=== PATIENT | male | born 1945 | race Caucasian/White ===

== ENCOUNTER 2016-10-16 08:12 | Inpatient (IN) | payer BC, OTHER ==
[2016-09-23 13:12] VITALS: BMI 32.0
--- NOTE | 2016-09-23 13:51 | PAT Medication Instructions ---
Service Date Sep 23, 2016. Current Home Medication List Allopurinol (Zyloprim *), 100 MG PO QAM Aspirin (Aspirin Chewable), 81 MG PO QAM Cholecalciferol (Vitamin D3), 1 TAB PO QAM Coenzyme Q10 (Ubidecarenone) (Co Q 10), 1 CAP PO QAM Fish Oil ([place]-3), 1 CAP PO QAM Metoprolol Tartrate (Lopressor) (Lopressor), 25 MG PO BID Nitroglycerin (Nitroglycerin Lingual), 1 DOSE SL UD Omeprazole (Prilosec), 40 MG PO QAM Sildenafil Citrate (Viagra), 50 MG PO PRN Simvastatin (Zocor), 40 MG PO QPM Medication Instructions For Your Scheduled Surgery - Hold the following medications 2 weeks prior to surgery: Coenzyme Q10 (Ubidecarenone) (Co Q 10), 1 CAP PO QAM Fish Oil ([place]-3), 1 CAP PO QAM - Hold the following medications the morning of surgery: Cholecalciferol (Vitamin D3), 1 TAB PO QAM Sildenafil Citrate (Viagra), 50 MG PO PRN - Take the following medications the morning of surgery with a sip of water: Omeprazole (Prilosec), 40 MG PO QAM Nitroglycerin (Nitroglycerin Lingual), 1 DOSE SL UD (if needed) Metoprolol Tartrate (Lopressor) (Lopressor), 25 MG PO BID Allopurinol (Zyloprim *), 100 MG PO QAM Aspirin (Aspirin Chewable), 81 MG PO QAM (continue per surgeon for instructions) - Take the following medications as scheduled the night before surgery: Simvastatin (Zocor), 40 MG PO QPM Sildenafil Citrate (Viagra), 50 MG PO PRN (if needed) Nitroglycerin (Nitroglycerin Lingual), 1 DOSE SL UD (if needed) Metoprolol Tartrate (Lopressor) (Lopressor), 25 MG PO BID If you have any questions please call us at [phone] (Karla You PA-C) or [phone] or [phone]
--- NOTE | 2016-09-23 14:35 | DIAGNOSTIC IMAGING REPORT ---
TWO VIEW CHEST CLINICAL HISTORY: Preoperative examination. FINDINGS: PA and lateral chest radiographs are compared to study dated 11/18/2011. The cardiomediastinal silhouette is unremarkable. There is atherosclerotic calcification of the thoracic aorta. The lungs and pleural spaces are clear. There is no pneumothorax. The skeletal structures are osteopenic. The bony thorax appears intact. Degenerative change is noted throughout the thoracic spine. IMPRESSION: No active disease in the chest. Electronically signed by: Stas Harrington M.D. 09/23/2016 2:34 PM
[2016-09-23 14:42] LABS: BASO % 0.8 %; BASO ABS # 0.07 K/uL (0-0.2); COMPLETE YES; EOS % 2.2 %; HEMATOCRIT 43.2 % (42-52); IG% 0.8 %; LYMPH % 23.9 %; LYMPH ABS # 2.15 K/uL (1.2-3.4); MEAN CELL VOLUME 90.6 fL (80-100); MEAN CORPUSCULAR HEMOGLOBIN 30.8 pg (25-34); MEAN PLATELET VOLUME 11.2 fL (7.4-10.4); NEUT % 61.3 %; PLATELET COUNT 240 K/uL (130-400); RED BLOOD COUNT 4.77 M/uL (4.7-6.1); WHITE BLOOD COUNT 8.99 K/uL (4.8-10.8)
[2016-09-23 14:50] LABS: ESTIMATED AVERAGE GLUCOSE 123 mg/dl; HA1C FLAG Normal (Normal)
[2016-09-23 14:55] LABS: PROTHROMBIN TIME (PATIENT) 10.7 SECONDS (9.0-12.0)
[2016-09-23 15:07] LABS: BUN/CREATININE RATIO 14.4 (10-20); CALCIUM 8.9 mg/dl (8.5-10.1); CREATININE 1.1 mg/dl (0.60-1.40); POTASSIUM 3.7 mmol/L (3.5-5.1)
--- NOTE | 2016-10-15 13:23 | HISTORY & PHYSICAL EXAMINATION ---
DATE OF ADMISSION: 10/16/2016 CHIEF COMPLAINT: Right knee pain. HISTORY OF PRESENT ILLNESS: The patient is a 71-year-old gentleman with known osteoarthritis about his right knee. He has had multiple previous corticosteroid injections. He continues to have pain and disability with his activities of daily living. He has pain with prolonged weightbearing and standing activities. He has difficulty with any kneeling, bending, or squatting activities. He now desires to proceed with right total knee arthroplasty. PAST MEDICAL HISTORY: Coronary artery disease, left ventricular hypertrophy, hypertension, hyperlipidemia, peripheral vascular disease, first degree AV block, and gout. PAST SURGICAL HISTORY: Hand surgery, knee arthroscopy, prostate surgery, and tonsillectomy. MEDICATIONS: Allopurinol 100 mg daily, aspirin 81 mg daily, CoQ10 100 mg twice daily, fish oil 1000 mg daily, metoprolol tartrate 25 mg daily, nitroglycerin 0.4 mg sublingual p.r.n. chest pain, omeprazole 40 mg daily, simvastatin 40 mg in the evening, vitamin D 1000 units every other day. ALLERGIES: AMOXICILLIN. SOCIAL HISTORY AND REVIEW OF SYSTEMS: Noncontributory. PHYSICAL EXAMINATION: GENERAL: Well-nourished, well-developed elderly male who appears his stated age. HEENT: Normocephalic, atraumatic, extraocular movements intact, oropharynx pink and moist. NECK: Supple without adenopathy. LUNGS: Clear to auscultation bilaterally. HEART: Regular rate and rhythm. ABDOMEN: Soft, nontender, nondistended. EXTREMITIES: The upper extremity within normal limits. The right knee has a varus alignment. He complains primarily of medial compartment pain. His range of motion from 0-120 degrees. X-RAYS: X-rays were reviewed. He has a varus-aligned knee. He has bone on bone arthritis of the medial compartment with complete loss of the joint space. There is moderate osteophyte formation about the patellofemoral joint. ASSESSMENT: Right knee degenerative joint disease. PLAN: Risks versus benefits were discussed. Consent was obtained. The patient's primary care physician is Dr. Freed. Will proceed with right total knee arthroplasty upon preoperative workup and medical clearance.
[2016-10-16] VITALS (9 sets, daily range): BP systolic 121–163; BP diastolic 67–93; PULSE 79–102; TEMP 36.3–36.9; O2SAT 93–99; Ht 188 cm; Wt 114.7 kg
[~2016-10-16] VITALS: Ht 188 cm; Wt 114.7 kg
[~2016-10-16 08:12] MED LIST: ACETAMINOPHEN 500 MG TAB PO SCH; ALL100 PO; ASPCH81X PO; BUPIVACAINE 0.5 % 5 MG/1 ML PF 10ML VIAL ONE; CHOL1000 PO; CLINDAMYCIN 600 MG/54 ML D5W 54 ML IV SCH; COEN1CAP17 PO; CeleBREX 200 MG CAP PO SCH; DEXAMETHASONE 4 MG TAB PO SCH; FAMOTIDINE 20 MG TAB PO SCH; GABAPENTIN 300 MG CAP PO SCH; LACTATED RINGER'S 1000ML IV SCH; LACTATED RINGER'S 500 ML IV SCH; METO25TA56 PO; METOCLOPRAMIDE HCL 10 MG TAB PO SCH; METOPROLOL TARTRATE 25 MG TAB PO SCH; NITR0.4S76 SL; OMEG10007 PO; OMEP40CA PO; ROPIVACAINE 5MG/ML 30 ML 150 MG, BUPIVACAINE/EPINEPHR 0.5% MPF 30 ML, KETOROLAC TROMETH... INFIL SCH; SIMV80TA2 PO; VGR50 PO
[2016-10-16] MEDS ORDERED: FENTANYL CITRATE INJ 50 MCG/1 ML 2 ML VIAL ONE ×3 (08:46→13:21)
[2016-10-16] MEDS ORDERED: MIDAZOLAM HCL 1 MG/ML 2ML VIAL ONE (08:46)
[2016-10-16] MEDS ORDERED: NURSING VERBAL MED ORDER ONE (09:00)
--- NOTE | 2016-10-16 09:05 | History & Physical Bridge Note ---
H&P Re-Evaluation Bridge Note: I have examined the patient, reviewed the History & Physical and in the interval since the performance of the History & Physical I have noted the following changes of clinical significance: No changes noted
[2016-10-16] MEDS ORDERED: BUPIVACAINE 0.25% 30 ML VIAL ONE (09:07)
[2016-10-16] MEDS: TRANEXAMIC ACID INJ 1,000 MG in SODIUM CHLORIDE 0.9% 100ML 100 ML IV SCH ×2 (09:12→16:03)
[2016-10-16] MEDS ORDERED: PHENYLEPHRINE HCL INJ 10 MG/ML VIAL ONE (09:36)
[2016-10-16] MEDS ORDERED: EpHEDrine SULFATE INJ 50 MG/ML AMP IV PRN (09:45)
[2016-10-16] MEDS ORDERED: FENTANYL CITRATE INJ 50 MCG/1 ML 2 ML VIAL IV PRN (09:45)
[2016-10-16] MEDS ORDERED: ONDANSETRON INJ 2 MG/ML 2 ML VIAL IV PRN ×2 (09:45→11:45)
[2016-10-16] MEDS ORDERED: ORTHO JOINT ANESTHETIC ONE (09:45)
[2016-10-16] MEDS ORDERED: HYDROmorphone INJ 1 MG/ML SYR IV PRN (09:45)
[2016-10-16] MEDS ORDERED: ATROPINE SULFATE 0.1 MG/ML 5ML SYR IV PRN (09:45)
[2016-10-16] MEDS ORDERED: PROPOFOL IV EMULSION 10 MG/ML 20 ML VIAL IV ONE (10:18)
[2016-10-16] MEDS ORDERED: LIDOCAINE HCL 2% 2 ML VIAL (20MG/ML) ONE (10:18)
[2016-10-16] MEDS ORDERED: DEXAMETHASONE SOD INJ 4 MG/ML VIAL ONE (10:18)
[2016-10-16] MEDS ORDERED: ONDANSETRON INJ 2 MG/ML 2 ML VIAL ONE (10:18)
[2016-10-16] MEDS ORDERED: HYDROmorphone INJ 2 MG/ML SYR/VIAL ONE (10:34)
[2016-10-16] MEDS ORDERED: BACITRACIN 50000 UNIT VIAL IR ONE (11:17)
[2016-10-16] MEDS ORDERED: POVIDONE-IODINE OP SOLN 30 ML BTL TOP ONE (11:17)
--- NOTE | 2016-10-16 11:26 | OPERATIVE REPORT ---
DATE OF OPERATION: 10/16/2016 PREOPERATIVE DIAGNOSIS: Osteoarthritis right knee. POSTOPERATIVE DIAGNOSIS: Osteoarthritis right knee. PROCEDURE: Right total knee arthroplasty. SURGEON: Dr. Pringle. AIRLINE MANAGER: Andrew Dueñas PA-C. ANESTHESIA: Spinal. COMPLICATIONS: None. OPERATION AND FINDINGS: Following induction of spinal anesthesia, the patient's right leg was prepped and draped in the usual sterile manner. Limb was exsanguinated with an Esmarch bandage and tourniquet was inflated to 350 mmHg. A longitudinal incision was made anteriorly. Subcutaneous tissue was sharply dissected. Electrocautery was used for hemostasis. Prepatellar bursa was incised and median parapatellar incision was performed. Patella was everted and the knee was flexed. Fat pad was removed to aid in visualization and the anterior and posterior cruciate ligaments were removed. The medial face of the tibia was cleared of soft tissue first with a Bovie and a Borrego elevator. This tissue was retracted posteriorly using a blunt Hohmann. A [place] retractor was used to expose the synovium above on the anterior aspect of the femur and this was removed down to bone. The PSI guide was placed on the distal femur and two pins were placed anteriorly and kept in position and two additional pins were placed distally and removed. The distal femoral cutting block was placed in position and the distal femoral cut was used in the +0 setting. Next, the cutting block was removed and the size 5 block was placed in the distal end of the femur. Care was taken to ensure appropriate external rotation and feeler gauge was used to ensure no notching would occur. The femoral block was centered on the distal femur and in the medial and lateral direction and was fixed using two bone screws. The gold pins were then removed. The oscillating saw was used to create the bone cuts and the distal femoral cutting block was removed and the reciprocating saw was used to further trim the femoral cuts as well as a deep in the area for the trochlear groove. Next, posterior condyle remnants were removed. Following this, a meniscal clamp and knife were utilized to remove the anterior portion of both medial and lateral meniscus. The proximal tibia PSI guide was placed into position and the proximal tibial cutting guide was screwed into position. The extra medullary alignment guide was utilized to ensure appropriate alignment. The proximal tibia was cut and the proximal tibial cutting block was removed and this bone fragment was removed. The appropriate guide was used to perform the notch cut on the distal femur and a lamina underliner and a cochlear knife were utilized to finish both medial and lateral meniscectomies to remove any remnants of the posterior or anterior cruciate ligaments. Following this, the distal femoral component was impacted into position and blunt Chris was used to sublux the tibia anteriorly. The proximal tibia was sized and a size 5 tibial tray was chosen as the size to be used. This was put into position and appropriate external rotation and a double check with extramedullary alignment guide was performed. The canal for the tibial stem was prepared first with a 17 mm drill and then the punch and a mallet and the trial tibial poly was placed. A size 39 was chosen the size to be used. It was brought to extension and the patella was prepared with the patellar reamer. A size 9 component was chosen the size to be used. The trial component was placed and knee was taken through a full range of motion and there was found to be no lateral subluxation of the tibia. No lateral release was required. The trials were all removed. The final components were obtained and assembled. Cement was mixed. The knee was thoroughly irrigated and the ortho mix was injected about the knee joint. The final components were cemented into position. After thoroughly suctioning and drying the bone ends, all excess cement was removed. The knee was held in extension while the cement hardened. The wound was irrigated and closed over a Hemovac drain. #1 Vicryl was used to close the extensor mechanism. Subcutaneous tissues closed using 0 Dexon. Skin was closed with kraig. Sterile dressing of Adaptic, 4 x 4's, sterile Webril, and Julio C was applied. The patient tolerated the procedure well. Recovery room stable. Due to the complex nature of the procedure, the entire surgery was performed with the operational assistance of Andrew Dueñas PA-C. The critical care physician assistant, under direct supervision, was involved in the actual performance of all aspects of the surgical procedure including hemostasis, tissue retraction and incision, instrument management, patient positioning, and wound closure. I attest to the content of the Intraoperative Record and any orders documented therein. Any exceptio ns are noted below.
[2016-10-16] MEDS ORDERED: ZOLPIDEM TARTRATE 5 MG TAB PO PRN (11:45)
[2016-10-16] MEDS ORDERED: BISACODYL 10 MG SUPP PR PRN (11:45)
[2016-10-16] MEDS ORDERED: MoRPHine SULFATE 2 MG/ML CARP IV PRN (11:45)
[2016-10-16] MEDS ORDERED: ALUMINUM/MAGNESIUM/SIMETH (MAALOX MAX) 30 ML UDC PO PRN (11:45)
[2016-10-16] MEDS ORDERED: NITROGLYCERIN SL SPR 4.9 GM BTL SL PRN (11:45)
[2016-10-16] MEDS ORDERED: DiphenhydrAMINE HCL 50 MG/ML VIAL IV PRN (11:45)
[2016-10-16] MEDS ORDERED: TAMSULOSIN HCL 0.4 MG CAP PO PRN (11:45)
[2016-10-16] MEDS ORDERED: MAGNESIUM HYDROXIDE SUSP 30 ML UDC PO PRN (11:45)
--- NOTE | 2016-10-16 12:19 | DIAGNOSTIC IMAGING REPORT ---
RIGHT KNEE 1 OR 2 VIEWS ROUTINE CLINICAL HISTORY: Osteoarthritis. Postoperative study. COMPARISON: None. DISCUSSION: There are postsurgical changes of a total right knee arthroplasty and patellar resurfacing. The femoral and tibial components appear well seated. Overlying skin kraig and surgical drains are evident. There are no acute fractures. There is a soft tissues consistent with history of recent surgery. IMPRESSION: Postsurgical changes of a total right knee arthroplasty. Electronically signed by: Odilon Mercer M.D. 10/16/2016 12:17 PM Dictated Date/Time: 10/16/2016 12:16 PM
--- NOTE | 2016-10-16 12:45 | Anesthesiology Progress Note ---
Anesthesia Post Op Note Date & Time Oct 16, 2016 at 12:45 Vital Signs Pain Intensity: 0 Vital Signs Past 12 Hours Date Time Temp Pulse Resp B/P Pulse Ox O2 Delivery O2 Flow Rate FiO2 10/16/16 12:35 79 16 136/71 97 Nasal Cannula 2 10/16/16 12:25 36.6 76 16 131/76 100 Nasal Cannula 2 10/16/16 12:15 77 14 128/75 100 Nasal Cannula 2 10/16/16 12:05 75 12 129/80 100 Mask 10 10/16/16 11:55 76 12 128/78 99 Mask 10 10/16/16 11:46 37.0 70 12 131/78 99 Mask 10 10/16/16 08:54 36.9 95 18 163/93 94 Room Air Notes Mental Status: alert / awake / arousable, participated in evaluation Pt Amnestic to Procedure: Yes Nausea / Vomiting: adequately controlled Pain: adequately controlled Airway Patency, RR, SpO2: stable & adequate BP & HR: stable & adequate Hydration State: stable & adequate Anesthetic Complications: no major complications apparent
[2016-10-16] MEDS ORDERED: MoRPHine SULFATE 4 MG/ML 1 ML CARP\\VIAL IV PRN (13:45)
[2016-10-16] MEDS ORDERED: MoRPHine SULFATE 10 MG/ML CARP/VIAL IV PRN (13:45)
[2016-10-16] MEDS: D5W AND 1/2NSS + 20MEQ KCL 1,000 ML IV SCH (16:04)
[2016-10-16] MEDS: KETOROLAC TROMETHAMINE 15 MG/ML VIAL IV. SCH ×2 (16:12→21:37)
[2016-10-16] MEDS: FERROUS GLUCONATE 324 MG TAB PO SCH (18:07)
[2016-10-16] MEDS: CLINDAMYCIN IV 600 MG in DEXTROSE 5% ADD-VANTAGE 50ML 50 ML IV SCH (18:08)
[2016-10-16] MEDS: SENNA 8.6 MG TAB PO SCH (20:50)
[2016-10-16] MEDS: OXYCODONE HCL 10 MG TABCR (OXYCONTIN) PO SCH (20:50)
[2016-10-16] MEDS: SIMVASTATIN 40 MG TAB PO SCH (20:50)
[2016-10-16] MEDS: DOCUSATE SODIUM 100 MG CAP PO SCH (20:50)
[2016-10-16] MEDS: ASPIRIN 81 MG ECTAB PO SCH (20:50)
[2016-10-16] MEDS: METOPROLOL TARTRATE 25 MG TAB PO SCH (20:50)
[2016-10-16] MEDS: ACETAMINOPHEN 500 MG TAB PO SCH (21:36)
[2016-10-17] VITALS (7 sets, daily range): BP systolic 102–153; BP diastolic 58–75; PULSE 52–77; TEMP 36.3–36.5; O2SAT 93–96
[2016-10-17] MEDS: D5W AND 1/2NSS + 20MEQ KCL 1,000 ML IV SCH (01:45)
[2016-10-17] MEDS: CLINDAMYCIN IV 600 MG in DEXTROSE 5% ADD-VANTAGE 50ML 50 ML IV SCH (01:45)
[2016-10-17] MEDS: KETOROLAC TROMETHAMINE 15 MG/ML VIAL IV. SCH ×2 (04:03→10:01)
[2016-10-17] MEDS: ACETAMINOPHEN 500 MG TAB PO SCH ×3 (05:53→21:45)
[2016-10-17 06:17] LABS: HEMATOCRIT 33.5 % (42-52); MEAN CELL VOLUME 90.8 fL (80-100); MEAN CORPUSCULAR HEMOGLOBIN 30.6 pg (25-34); MEAN CORPUSCULAR HGB CONC 33.7 g/dl (32-36); PLATELET COUNT 256 K/uL (130-400); RED BLOOD COUNT 3.69 M/uL (4.7-6.1); WHITE BLOOD COUNT 18.06 K/uL (4.8-10.8)
[2016-10-17 06:33] LABS: BUN/CREATININE RATIO 13.4 (10-20); CALCIUM 8.5 mg/dl (8.5-10.1); CREATININE 1.1 mg/dl (0.60-1.40); POTASSIUM 4.4 mmol/L (3.5-5.1)
--- NOTE | 2016-10-17 07:43 | Orthopedic Progress Note ---
Orthopedic Progress Note Date of Service Oct 17, 2016. Subjective Post OP Day: 1 Reports: feeling well Objective N/V intact, dressing C/D/I (Hemovac in place), toes mobile Date Time Temp Pulse Resp B/P Pulse Ox O2 Delivery O2 Flow Rate FiO2 10/17/16 03:15 36.5 77 15 111/68 93 Room Air 10/17/16 00:15 Room Air 10/16/16 23:30 36.5 83 16 132/76 95 Room Air 10/16/16 20:41 91 133/70 10/16/16 19:00 36.5 102 18 147/80 93 Room Air 10/16/16 17:01 36.5 85 18 123/70 98 Nasal Cannula 2.0 10/16/16 15:55 36.4 85 18 149/78 98 Nasal Cannula 2.0 10/16/16 15:45 99 Nasal Cannula 10/16/16 14:55 36.4 82 16 121/67 99 Nasal Cannula 2.0 10/16/16 13:55 93 Nasal Cannula 2.0 10/16/16 13:55 97 Nasal Cannula 2.0 10/16/16 13:55 36.3 79 16 145/79 93 Nasal Cannula 2.0 10/16/16 13:30 79 22 121/77 98 Nasal Cannula 2 10/16/16 13:15 77 16 134/80 98 Nasal Cannula 2 10/16/16 13:00 78 14 134/79 95 Nasal Cannula 2 10/16/16 12:45 76 12 136/75 97 Nasal Cannula 2 10/16/16 12:35 79 16 136/71 97 Nasal Cannula 2 10/16/16 12:25 36.6 76 16 131/76 100 Nasal Cannula 2 10/16/16 12:15 77 14 128/75 100 Nasal Cannula 2 10/16/16 12:05 75 12 129/80 100 Mask 10 10/16/16 11:55 76 12 128/78 99 Mask 10 10/16/16 11:46 37.0 70 12 131/78 99 Mask 10 10/16/16 08:54 36.9 95 18 163/93 94 Room Air Laboratory Results 24 Hours: Test 10/17/16 05:35 Hematocrit 33.5 % Hemoglobin 11.3 g/dL Assessment & Plan Assessment: 71 yo male stable POD #1 s/p right TKA Plan: 1. Med management 2. DVT prophylaxis- ASA, TEDs, SCDs 3. PT/OT 4. D/C planning- home w/ HH
--- NOTE | 2016-10-17 07:45 | Discharge Instructions ---
Discharge Instructions Admission Reason for Admission: Right Knee Osteoarthritis Discharge Discharge Diagnosis / Problem: RIght knee arthritis Discharge Goals Goal(s): Decrease discomfort, Improve function Activity Recommendations Activity Limitations: as noted below Weightbearing Status: Right weightbearing (as tolerated) . Instructions / Follow-Up Instructions / Follow-Up ACTIVITY RECOMMENDATIONS: SELF CARE INSTRUCTIONS AFTER TOTAL KNEE REPLACEMENT A. You may need to continue a physical therapy program after discharge from the hospital. There are several options available to you. Your doctor will assist you in selecting the best one for you. 1. An out-patient facility 2 to 3 times a week for therapy or home therapy. 2. Continue working on all exercises taught to you in the hospital. Your goals should be to increase bending of your knee to 90 degrees and beyond and to fully straighten your knee. B. You may progress at your own pace from walking with a walker or crutches to a cane; then to no assistive devices. C. Make walking a part of your daily routine. Be up as much as comfortable with rest periods throughout the day. Rest with leg elevation is very important. Use the ice wrap frequently for the first 3-4 weeks. D. There are no restrictions on activities. You may ride in a car, shop, participate in solderer barrel ribs and all social activities. E. Wear the long elastic stockings (GUMARO hose) 20 hours a day for 2 weeks after surgery. They can be removed several times a day for laundering and for a bath. F. You may shower, no tub baths until cleared by your doctor. SPECIAL CARE INSTRUCTIONS: VERY IMPORTANT TO READ AND REVIEW A. There are a few signs you need to watch for after you are home. Call [facility] if you notice any of the followin. Increased severe knee pain. Some pain is expected especially when you exercise. 2. Increased swelling in your leg or knee; pain or swelling of the calf muscle in either lower leg. 3. Any fluid drainage from the incision. 4. Shortness of breath or chest pain. B. Please call [facility] at if you have any concerns or questions about your operation or recovery. The doctor or his nurse will return your call promptly. C. You must take antibiotics before dental work, bladder, bowel or other surgery. Your doctor will provide you with a permanent care to carry describing this precaution. IMPORTANT: * REMEMBER TO TAKE ASPIRIN, 81 MG, TWICE DAILY FOR 4 WEEKS UNLESS OTHERWISE DIRECTED. THIS IS YOUR BLOOD THINNER. * HIGH RISK PATIENTS MAY BE PRESCRIBED A STRONGER BLOOD THINNER. THIS WILL BE PROVIDED AT DISCHARGE. * CALL IF INCREASED PAIN, REDNESS, DRAINAGE OR FEVER GREATER THAT 101. * WEAR GUMARO HOSE 20 HOURS PER DAY FOR 2 WEEKS. Silverlon- This is a large adhesive bandage that contains silver ions. This helps your incision heal by fighting off bacteria and protecting it from the outside environment. You are permitted to shower with this dressing. This will remain on your incision for 7 days and then should be removed. Some visible blood or drainage through the dressing window is normal. If there is significant drainage or leaking noted before the 7 days notify your doctor's office immediately. Once removed, keep incision clean and dry. If there is any drainage or redness noted, please call your surgeon. FOLLOW UP VISIT: If appointment is not already scheduled: Please call [facility] to make a follow-up appointment for 2 weeks after your surgery at . Current Hospital Diet Patient's current hospital diet: AHA Diet (Heart Healthy) Discharge Diet Recommended Diet: Regular Diet Procedures Procedures Performed: Right Total Knee Arthroplasty Pending Studies Studies pending at discharge: no Laboratory Results Hemoglobin A1c Test 09/23/16 14:00 Range/Units Estimated Average Glucose 123 mg/dl Hemoglobin A1c 5.9 H 4.5-5.6 % Medical Emergencies . Who to Call and When: Medical Emergencies: If at any time you feel your situation is an emergency, please call 911 immediately. . Non-Emergent Contact Non-Emergency issues call your: Surgeon Call Non-Emergent contact if: temperature is above 101.5, your pain is not controlled, wound has increased drainage, wound has increased redness . "Provider Documentation" section prepared by Marcelino Gaytan PA-C. VTE Core Measure Inpt VTE Proph given/why not?: Other Anticoagulation (ASA 81mg bid), T.E.D. Stockings, SCD's
[2016-10-17] MEDS: ALLOPURINOL 100 MG TAB PO SCH (08:48)
[2016-10-17] MEDS: FERROUS GLUCONATE 324 MG TAB PO SCH ×3 (08:48→17:46)
[2016-10-17] MEDS: METOPROLOL TARTRATE 25 MG TAB PO SCH ×2 (08:48→20:31)
[2016-10-17] MEDS: MULTIVITAMIN TAB PO SCH (08:53)
[2016-10-17] MEDS: ASPIRIN 81 MG ECTAB PO SCH ×2 (08:53→20:31)
[2016-10-17] MEDS: CHOLECALCIFEROL 1000 INTER.UNIT TAB PO SCH (08:54)
[2016-10-17] MEDS: PANTOprazole SOD 40 MG TAB PO SCH (08:54)
[2016-10-17] MEDS ORDERED: NON-FORMULARY MEDICATION (Coenzyme Q10 (Ubidecarenone) (Co Q 10) 1 CAP) PO SCH (09:00)
[2016-10-17] MEDS: DOCUSATE SODIUM 100 MG CAP PO SCH ×2 (09:01→20:31)
[2016-10-17] MEDS: OXYCODONE HCL 10 MG TABCR (OXYCONTIN) PO SCH ×2 (09:01→20:30)
[2016-10-17] MEDS: OXYCODONE HCL IR 5 MG TAB (IMMEDIATE RELEASE) PO PRN (16:00)
[2016-10-17] MEDS: SENNA 8.6 MG TAB PO SCH (21:44)
[2016-10-17] MEDS: SIMVASTATIN 40 MG TAB PO SCH (21:44)
[2016-10-18] MEDS: ACETAMINOPHEN 500 MG TAB PO SCH (05:30)
[2016-10-18 06:22] VITALS: BP 152/79; PULSE 64; TEMP 36.5; O2SAT 95
[2016-10-18] MEDS: OXYCODONE HCL IR 5 MG TAB (IMMEDIATE RELEASE) PO PRN (07:45)
[2016-10-18] MEDS: PANTOprazole SOD 40 MG TAB PO SCH (07:45)
[2016-10-18 08:35] VITALS: BP 143/80; PULSE 76; O2SAT 93
[2016-10-18] MEDS: OXYCODONE HCL 10 MG TABCR (OXYCONTIN) PO SCH (09:25)
[2016-10-18] MEDS: METOPROLOL TARTRATE 25 MG TAB PO SCH (09:26)
[2016-10-18] MEDS: ASPIRIN 81 MG ECTAB PO SCH (09:26)
[2016-10-18] MEDS: MULTIVITAMIN TAB PO SCH (09:26)
[2016-10-18] MEDS: ALLOPURINOL 100 MG TAB PO SCH (09:26)
[2016-10-18] MEDS: FERROUS GLUCONATE 324 MG TAB PO SCH (09:26)
[2016-10-18] MEDS: CHOLECALCIFEROL 1000 INTER.UNIT TAB PO SCH (09:26)
[2016-10-18] MEDS: DOCUSATE SODIUM 100 MG CAP PO SCH (09:27)
--- NOTE | 2016-10-18 10:00 | Orthopedic Progress Note ---
Orthopedic Progress Note Date of Service Oct 18, 2016. Subjective Post OP Day: 2 Reports: feeling well Objective calves soft nontender, N/V intact, dressing C/D/I, toes mobile Date Time Temp Pulse Resp B/P Pulse Ox O2 Delivery O2 Flow Rate FiO2 10/18/16 06:22 36.5 64 16 152/79 95 Room Air 10/18/16 00:15 Room Air 10/17/16 23:35 36.3 52 16 125/66 95 Room Air 10/17/16 20:27 64 153/75 10/17/16 16:00 Room Air 96.0 10/17/16 15:45 36.4 53 18 102/58 96 Room Air 10/17/16 11:26 36.4 59 18 125/68 94 Room Air Assessment & Plan Assessment: 71 yo male stable POD #2 s/p right TKA Plan: 1. Med management 2. DVT prophylaxis- ASA, TEDs, SCDs 3. PT/OT 4. D/C planning- home w/ HH
[2016-10-18] MEDS ORDERED: ONDA8TAB12 PO (10:03)
[2016-10-18] MEDS ORDERED: ASPEC81 PO (10:03)
[2016-10-18] MEDS ORDERED: OXYSR10 PO (10:03)
[2016-10-18] MEDS ORDERED: RXC5 PO (10:03)
[2016-10-18] MEDS ORDERED: ACET-1138 PO (10:03)
[2016-10-18 10:26] VITALS: BP 152/79; PULSE 64; TEMP 36.5; O2SAT 95
--- NOTE | 2016-10-21 00:36 | DISCHARGE SUMMARY ---
DISCHARGE DIAGNOSIS: Degenerative joint disease, right knee. SECONDARY DIAGNOSES: Coronary artery disease, left ventricular hypertrophy, hypertension, hyperlipidemia, peripheral vascular disease, first-degree AV block, gout. CONSULTS: None. COMPLICATIONS: None. PROCEDURES: Right total knee arthroplasty performed by Dr. Pringle on 10/16/2016. BRIEF HISTORY: As dictated in history and physical. HOSPITAL SUMMARY: The patient was admitted on the above-noted date and had the above-noted surgery performed which he tolerated well. On his first postoperative day, he was feeling well. Neurovascularly intact. Dressings clean, dry and intact. Toes were mobile and vital signs were stable. He was afebrile. Hemoglobin was 11.3. He was started on physical therapy protocol and continued on DVT prophylaxis and pain management. By his second postoperative day, he continued to remain stable. Calves were soft, nontender, neurovascularly intact. Toes were mobile. Dressings clean, dry and intact. Vital signs were stable. He was afebrile and he was progressing with his physical therapy and remaining stable and it was felt he could be discharged to home with home health services. For further review, please see chart. LAB AND X-RAY DATA: As per chart. DISCHARGE INSTRUCTIONS: The patient will be discharged to home in satisfactory condition on 10/18/2016. DIET: Heart-healthy diet. ACTIVITY: Weightbearing as tolerated right lower extremity. Follow TKA instruction sheets and special care instructions as noted. Follow up with Dr. Pringle in 2 weeks. The patient to call for an appointment if one has not been made for you. DISCHARGE MEDICATIONS: Acetaminophen 1000 mg p.o. q. 8 hours, aspirin 81 mg p.o. b.i.d. for 30 days, Zofran 8 mg p.o. q. 8 hours p.r.n. nausea, OxyContin 10 mg p.o. q. 12 hours, oxycodone 5-10 mg p.o. q. 4-6 hours p.r.n., resume taking allopurinol 100 mg p.o. q.a.m., vitamin D3 one tab p.o. in the morning, CoQ10 one cap p.o. q.a.m., fish oil 1 cap p.o. q.a.m., metoprolol 25 mg p.o. b.i.d., nitroglycerin sublingual 0.4 mg 1 dose as directed, omeprazole 40 mg p.o. q.a.m., Viagra 50 mg p.o. p.r.n., and simvastatin 40 mg p.o. q.p.m. Stop once your aspirin dosing twice daily is stopped. You may resume once daily dosing.
== END 2016-10-18 10:51 | disposition home or self-care (01) | DRG 470 ==
LOC: ENRESERVTM → ENRESERVDT → C.ACU 08:12 → C.3E 09:03
PROC: 0SRC0J9 Replacement of Right Knee Joint with Synthetic Substitute, Cemented, Open Approach (ICD-10-PCS; principal; 2016-10-16 10:15)
DX: M17.11 Unilateral primary osteoarthritis, right knee (principal); M10.9 Gout, unspecified; E78.5 Hyperlipidemia, unspecified; I25.10 Atherosclerotic heart disease of native coronary artery without angina pectoris; I10 Essential (primary) hypertension; Z86.79 Personal history of other diseases of the circulatory system; I73.9 Peripheral vascular disease, unspecified; I44.0 Atrioventricular block, first degree; R01.1 Cardiac murmur, unspecified; I65.02 Occlusion and stenosis of left vertebral artery; I25.2 Old myocardial infarction; K21.9 Gastro-esophageal reflux disease without esophagitis; E66.9 Obesity, unspecified; Z68.32 Body mass index [BMI] 32.0-32.9, adult; Z85.46 Personal history of malignant neoplasm of prostate; Z79.82 Long term (current) use of aspirin; Z79.899 Other long term (current) drug therapy

== ENCOUNTER 2017-11-26 11:56 | Observation (INO) | payer BC, OTHER ==
[~2017-11-26] VITALS: Ht 188 cm; Wt 106.0 kg
[~2017-11-26 11:56] MED LIST changes: +ACET-1138 PO; -ACETAMINOPHEN 500 MG TAB PO SCH; -ASPCH81X PO; +ASPEC81 PO; -BUPIVACAINE 0.5 % 5 MG/1 ML PF 10ML VIAL ONE; -CLINDAMYCIN 600 MG/54 ML D5W 54 ML IV SCH; -CeleBREX 200 MG CAP PO SCH; -DEXAMETHASONE 4 MG TAB PO SCH; -FAMOTIDINE 20 MG TAB PO SCH; -GABAPENTIN 300 MG CAP PO SCH; -LACTATED RINGER'S 1000ML IV SCH; -LACTATED RINGER'S 500 ML IV SCH; -METOCLOPRAMIDE HCL 10 MG TAB PO SCH; -METOPROLOL TARTRATE 25 MG TAB PO SCH; +NITR0.1S SL; -NITR0.4S76 SL; +OXYSR10 PO; -ROPIVACAINE 5MG/ML 30 ML 150 MG, BUPIVACAINE/EPINEPHR 0.5% MPF 30 ML, KETOROLAC TROMETH... INFIL SCH; +RXC5 PO
[2017-11-26] MEDS ORDERED: ALL100 PO (12:30)
[2017-11-26] MEDS ORDERED: ASPI81TA28 PO (12:30)
[2017-11-26] MEDS ORDERED: SODIUM CHLORIDE 0.9% 1000ML 1,000 ML IV STA (12:40)
--- NOTE | 2017-11-26 12:45 | EMERGENCY ROOM VISIT NOTE ---
History First contact with patient: 12:29 Chief Complaint: GI ASSESSMENT Stated Complaint: BLOOD IN BOWEL MOVEMENT Nursing Triage Summary: pt to the ED with c/o bright red blood BM today and happened last as well no dizziness no sob no blood thinners no c/o pain History of Present Illness The patient is a 72 year old male who presents to the Emergency Room with complaints of episode of red blood per rectum that occurred today. Had similar episode last . Takes baby aspirin. Otherwise, denies anticoagulation. Had colonoscopy in the past with benign polyps. Denies any prior history of similar bleeding. Denies chest pain, sob, lightheadedness, weakness, f/c, n/v, diarrhea. Source of History: patient Onset: This morning Position: other (red blood per rectum) Symptom Intensity: minimal Quality: other (bleeding) Timing: intermittent Modifying Factors (Worsening): defecation Modifying Factors (Relieving): other (time) Associated Symptoms: + hematochezia, No fevers, No diaphoresis, No chest pain, No SOB, No nausea, No vomiting, No abdominal pain, No melena, No diarrhea , No weakness Review of Systems See HPI for pertinent positives and negatives. A total of ten systems were reviewed and were otherwise negative. Past Medical/Surgical History Medical Problems: (1) Lower GI bleed (2) Right knee DJD Family History Patient reports no known family medical history. Social History Smoking Status: Former Smoker Marital Status: Occupation Status: employed Current/Historical Medications Scheduled Allopurinol (Allopurinol), 100 MG PO Q2D Aspirin (Aspirin Ec), 81 MG PO Q2D Cholecalciferol (Vitamin D3), 1 TAB PO QAM Coenzyme Q10 (Ubidecarenone) (Co Q 10), 1 CAP PO QAM Fish Oil ([place]-3), 1 CAP PO QAM Metoprolol Tartrate (Lopressor) (Lopressor), 25 MG PO Q2D Nitroglycerin (Nitroglycerin Lingual), 1 DOSE SL UD Sildenafil Citrate (Viagra), 50 MG PO PRN Simvastatin (Zocor), 40 MG PO Q2D Allergies Amoxicillin Physical Exam Vital Signs Date Time Temp Pulse Resp B/P (MAP) Pulse Ox O2 Delivery O2 Flow Rate FiO2 11/26/17 15:24 75 20 182/86 96 Room Air 11/26/17 14:56 75 20 175/87 97 Room Air 11/26/17 14:36 81 18 183/82 96 Room Air 11/26/17 13:23 60 20 175/79 98 Room Air 11/26/17 13:20 68 11/26/17 12:11 36.6 76 16 165/69 97 Physical Exam GENERAL: Awake, alert, well-appearing, in no distress HENT: Normocephalic, atraumatic. Oropharynx unremarkable. EYES: Normal conjunctiva. Sclera non-icteric. NECK: Supple. No nuchal rigidity. FROM. No JVD. RESPIRATORY: Clear to auscultation. CARDIAC: Regular rate, normal rhythm. Extremities warm and well perfused. Pulses equal. ABDOMEN: Soft, non-distended. No tenderness to palpation. No rebound or guarding. No masses. RECTAL: No external hemorrhoids. Small amount of dark red blood that is guaiac positive. MUSCULOSKELETAL: Chest examination reveals no tenderness. The back is symmetrical on inspection without obvious abnormality. There is no CVA tenderness to palpation. No joint edema. LOWER EXTREMITIES: Calves are equal size bilaterally and non-tender. No edema. No discoloration. NEURO: Normal sensorium. No sensory or motor deficits noted. SKIN: No rash or jaundice noted. Medical Decision & Procedures ER Provider Diagnostic Interpretation: Radiology results as stated below per my review and radiologist interpretation CT ABD/PELVIS IV CONTRAST ONLY CLINICAL HISTORY: Prostate carcinoma. Hematochezia. COMPARISON STUDY: None. TECHNIQUE: Following the IV administration of 93 mL of Optiray-320, CT scan of the abdomen and pelvis was performed from the lung bases to the proximal femurs. Images are reviewed in the axial, sagittal, and coronal planes. IV contrast was administered without complication. A dose lowering technique was utilized adhering to the principles of ALARA. CT DOSE: 1155.91 mGy.cm FINDINGS: Lower chest: The heart is normal in size and configuration, without pericardial effusion. The lung bases and pleural spaces are clear. Liver: There is mild hepatic steatosis. There is a 19 mm right lobe hypodensity containing a tiny central calcification Gallbladder: Unremarkable. Spleen: Normal in size and attenuation. Pancreas: Unremarkable. Adrenal glands: Unremarkable. Kidneys: There is symmetric renal cortical enhancement. The kidneys are normal in size without hydronephrosis. There are vascular calcifications present. Bowel: There are no transition zones indicate bowel obstruction. There is no acute diverticulitis. There is no evidence of acute appendicitis. Peritoneum: There is no intraperitoneal free air or abdominal ascites. Vasculature: There is no evidence of aortic aneurysm. There are moderately extensive atheromatous calcifications within the aorta and iliac vessels Adenopathy: None. Pelvic viscera: The patient is status post a prior prostatectomy Skeletal structures: No destructive osseous lesions are seen. IMPRESSION: 1. No evidence of bowel obstruction. No evidence of free air 2. No acute inflammatory changes 3. Hepatic steatosis 4. Indeterminate 19 mm right lobe hepatic hypodensity Electronically signed by: Odilon Mercer M.D. 11/26/2017 2:34 PM Dictated Date/Time: 11/26/2017 2:29 PM Laboratory Results 11/26/17 13:06 Red Blood Count 4.05, Mean Corpuscular Volume 83.5, Mean Corpuscular Hemoglobin 27.9, Mean Corpuscular Hemoglobin Concent 33.4, Mean Platelet Volume 10.1, Neutrophils (%) (Auto) 56.1, Lymphocytes (%) (Auto) 29.6, Monocytes (%) (Auto) 11.3, Eosinophils (%) (Auto) 2.0, Basophils (%) (Auto) 0.9, Neutrophils # (Auto ) 3.83, Lymphocytes # (Auto) 2.02, Monocytes # (Auto) 0.77, Eosinophils # (Auto ) 0.14, Basophils # (Auto) 0.06 11/26/17 13:06 Test 11/26/17 13:06 11/26/17 14:30 White Blood Count 6.83 K/uL (4.8-10.8) Red Blood Count 4.05 M/uL (4.7-6.1) Hemoglobin 11.3 g/dL (14.0-18.0) Hematocrit 33.8 % (42-52) Mean Corpuscular Volume 83.5 fL (80-100) Mean Corpuscular Hemoglobin 27.9 pg (25-34) Mean Corpuscular Hemoglobin Concent 33.4 g/dl (32-36) Platelet Count 220 K/uL (130-400) Mean Platelet Volume 10.1 fL (7.4-10.4) Neutrophils (%) (Auto) 56.1 % Lymphocytes (%) (Auto) 29.6 % Monocytes (%) (Auto) 11.3 % Eosinophils (%) (Auto) 2.0 % Basophils (%) (Auto) 0.9 % Neutrophils # (Auto) 3.83 K/uL (1.4-6.5) Lymphocytes # (Auto) 2.02 K/uL (1.2-3.4) Monocytes # (Auto) 0.77 K/uL (0.11-0.59) Eosinophils # (Auto) 0.14 K/uL (0-0.5) Basophils # (Auto) 0.06 K/uL (0-0.2) RDW Standard Deviation 43.2 fL (36.4-46.3) RDW Coefficient of Variation 14.1 % (11.5-14.5) Immature Granulocyte % (Auto) 0.1 % Immature Granulocyte # (Auto) 0.01 K/uL (0.00-0.02) Prothrombin Time 10.3 SECONDS (9.0-12.0) Prothromb Time International Ratio 1.0 (0.9-1.1) Activated Partial Thromboplast Time 25.7 SECONDS (21.0-31.0) Partial Thromboplastin Ratio 1.0 Anion Gap 7.0 mmol/L (3-11) Est Creatinine Clear Calc Drug Dose 93.4 ml/min Estimated GFR () 97.2 Estimated GFR (Non- 83.8 BUN/Creatinine Ratio 14.7 (10-20) Lactic Acid Level 0.9 mmol/L (0.4-2.0) Calcium Level 9.3 mg/dl (8.5-10.1) Iron Level 31 mcg/dl (35-175) Total Iron Binding Capacity 464 mcg/dl (250-450) Total Bilirubin 0.5 mg/dl (0.2-1) Direct Bilirubin < 0.1 mg/dl (0-0.2) Aspartate Amino Transf (AST/SGOT) 19 U/L (15-37) Alanine Aminotransferase (ALT/SGPT) 22 U/L (12-78) Alkaline Phosphatase 79 U/L (45-117) Total Protein 7.2 gm/dl (6.4-8.2) Albumin 3.8 gm/dl (3.4-5.0) Lipase 108 U/L (73-393) Thyroid Stimulating Hormone (TSH) 1.530 uIu/ml (0.300-4.500) Urine Color YELLOW Urine Appearance CLEAR (CLEAR) Urine pH 6.5 (4.5-7.5) Urine Specific [place] 1.009 (1.000-1.030) Urine Protein NEG (NEG) Urine Glucose (UA) NEG (NEG) Urine Ketones NEG (NEG) Urine Occult Blood NEG (NEG) Urine Nitrite NEG (NEG) Urine Bilirubin NEG (NEG) Urine Urobilinogen NEG (NEG) Urine Leukocyte Esterase NEG (NEG) Laboratory results reviewed by me Medications Administered Medications (Trade) Dose Ordered Sig/[place] Route Start Time Stop Time Status Last Admin Dose Admin Sodium Chloride 1,000 ml @ 999 mls/hr Q1H1M STAT IV 11/26/17 12:40 11/26/17 13:40 DC 11/26/17 13:16 999 MLS/HR ECG Per My Interpretation Indication: other (GI Bleed) Rate (beats per minute): 71 Rhythm: sinus rhythm Findings: 1st degree AV block, no acute ischemic change, other (Normal axis) ED Course 1229: The patient was evaluated in room B03B. A complete history and physical exam was performed. 1518: Upon reexamination, the patient was resting comfortably. I discussed the test results and treatment plan with him. The patient will be evaluated for further management. 1522: I discussed the patient's case with Dr. Payan, [facility] Hospitalist. The patient will be evaluated for further management and care. Medical Decision I reviewed the patient's past medical history, medications, and the nursing notes as described above. Differential diagnosis: Etiologies such as diverticulosis, AVM, coagulopathy, colitis, inflammatory bowel disease, malignancy, Sugey-Connell tear, esophagitis, peptic ulcer disease , variceal bleed, gastritis, epistaxis, fissure, hemorrhoids, as well as others were entertained. The patient is a 72-year-old gentleman with a past medical history of prostate cancer status post resection who presents emergency department with red blood per rectum 1 today in the setting of a similar episode earlier today per hpi. The patient takes a baby aspirin but otherwise no blood thinners. On arrival, the patient is well-appearing, in no acute distress, afebrile stable vital signs. Abdomen is benign soft nontender. Rectal exam demonstrates a small amount of dark red blood that is guaiac positive. Hbg. 11.3 similar to 1 year prior however no recent values for comparison. BUN wnl. CT abd/pelvis negative for acute findings. [place]-Blatch[place] Bleeding Score 3, high risk, thus will admit for further evaluation and likely GI consultation and possible colonoscopy. Case was discussed with Dr. Payan, [facility] hospitalist, who will admit the patient for further management. The scribe's documentation has been prepared under my direction and personally reviewed by me in its entirety. I confirm that the note above accurately reflects all work, treatment, procedures, and medical decision making performed by me. Medication Reconcilliation Current Medication List: was personally reviewed by me Blood Pressure Screening Patient's blood pressure: Elevated blood pressure Monitored by hospitalist. Consults Consulting Physician: Dr. Payan, [facility] Hospitalist Returned Call: [phone] I discussed the patient's case with Dr. Payan, [facility] Hospitalist. The patient will be evaluated for further management and care. Impression Primary Impression: Lower GI bleed Departure Information Dispostion Being Evaluated By Hospitalist Referrals Pro,Clyde Estrada M.D. (PCP) Patient Instructions My [facility]
[2017-11-26 13:27] LABS: BASO % 0.9 %; BASO ABS # 0.06 K/uL (0-0.2); EOS ABS # 0.14 K/uL (0-0.5); HEMATOCRIT 33.8 % (42-52); HEMOGLOBIN 11.3 g/dL (14.0-18.0); IG# 0.01 K/uL (0.00-0.02); LYMPH % 29.6 %; LYMPH ABS # 2.02 K/uL (1.2-3.4); MEAN CELL VOLUME 83.5 fL (80-100); MEAN CORPUSCULAR HEMOGLOBIN 27.9 pg (25-34); MEAN CORPUSCULAR HGB CONC 33.4 g/dl (32-36); MEAN PLATELET VOLUME 10.1 fL (7.4-10.4); MONO % 11.3 %; MONO ABS # 0.77 K/uL (0.11-0.59); NEUT % 56.1 %; NEUT ABS # 3.83 K/uL (1.4-6.5); PLATELET COUNT 220 K/uL (130-400); RED CELL DISTRIBUTION WIDTH CV 14.1 % (11.5-14.5); RED CELL DISTRIBUTION WIDTH SD 43.2 fL (36.4-46.3); WHITE BLOOD COUNT 6.83 K/uL (4.8-10.8)
[2017-11-26 13:37] LABS: PTT PATIENT 25.7 SECONDS (21.0-31.0)
[2017-11-26 13:46] LABS: ALBUMIN 3.8 gm/dl (3.4-5.0); ALT/SGPT 22 U/L (12-78); BLOOD UREA NITROGEN 13 mg/dl (7-18); CALCIUM 9.3 mg/dl (8.5-10.1); CARBON DIOXIDE 26 mmol/L (21-32); GLUCOSE 95 mg/dl (70-99); LIPASE 108 U/L (73-393); POTASSIUM 3.8 mmol/L (3.5-5.1); SODIUM 138 mmol/L (136-145)
[2017-11-26 13:49] LABS: ALKALINE PHOSPHATASE 79 U/L (45-117); AST/SGOT 19 U/L (15-37); TOTAL PROTEIN 7.2 gm/dl (6.4-8.2)
--- NOTE | 2017-11-26 14:35 | DIAGNOSTIC IMAGING REPORT ---
CT ABD/PELVIS IV CONTRAST ONLY CLINICAL HISTORY: Prostate carcinoma. Hematochezia. COMPARISON STUDY: None. TECHNIQUE: Following the IV administration of 93 mL of Optiray-320, CT scan of the abdomen and pelvis was performed from the lung bases to the proximal femurs. Images are reviewed in the axial, sagittal, and coronal planes. IV contrast was administered without complication. A dose lowering technique was utilized adhering to the principles of ALARA. CT DOSE: 1155.91 mGy.cm FINDINGS: Lower chest: The heart is normal in size and configuration, without pericardial effusion. The lung bases and pleural spaces are clear. Liver: There is mild hepatic steatosis. There is a 19 mm right lobe hypodensity containing a tiny central calcification Gallbladder: Unremarkable. Spleen: Normal in size and attenuation. Pancreas: Unremarkable. Adrenal glands: Unremarkable. Kidneys: There is symmetric renal cortical enhancement. The kidneys are normal in size without hydronephrosis. There are vascular calcifications present. Bowel: There are no transition zones indicate bowel obstruction. There is no acute diverticulitis. There is no evidence of acute appendicitis. Peritoneum: There is no intraperitoneal free air or abdominal ascites. Vasculature: There is no evidence of aortic aneurysm. There are moderately extensive atheromatous calcifications within the aorta and iliac vessels Adenopathy: None. Pelvic viscera: The patient is status post a prior prostatectomy Skeletal structures: No destructive osseous lesions are seen. IMPRESSION: 1. No evidence of bowel obstruction. No evidence of free air 2. No acute inflammatory changes 3. Hepatic steatosis 4. Indeterminate 19 mm right lobe hepatic hypodensity Electronically signed by: Odilon Mercer M.D. 11/26/2017 2:34 PM Dictated Date/Time: 11/26/2017 2:29 PM
[2017-11-26] MEDS ORDERED: ACETAMINOPHEN 325 MG TAB PO PRN (16:15)
[2017-11-26] MEDS ORDERED: ONDANSETRON INJ 2 MG/ML 2 ML VIAL IV PRN (16:15)
[2017-11-26] MEDS ORDERED: ALUMINUM/MAGNESIUM/SIMETH (MAALOX MAX) 30 ML UDC PO PRN (16:15)
--- NOTE | 2017-11-26 16:33 | History and Physical ---
History & Physical Date & Time of Service: Nov 26, 2017 at 16:23 Chief Complaint: Blood In Bowel Movement Primary Care Physician: Clyde Freed M.D. History of Present Illness This is a generally healthy 72-year-old male who has been up-to-date on his colonoscopies who presented with a second episode of bright red blood per rectum. This is painless. This occurred 1 week ago he thought nothing of it and he began having some bright red blood today. He sought care in the ER at which time a rectal exam performed by Dr. cartagena did reveal bright red blood no masses, his hemoglobin is stable as it was one year ago 11.3 he is in good condition with no concerns In the emergency department I reviewed his last colonoscopy which was in [address] Dawkins Case at that time there was no mention of diverticulosis there were some polyps removed with hot snare but no other mention of internal hemorrhoids etc. This patient has no other signs of bleeding bruising nosebleeds he does however take a baby aspirin and this is currently held Family History Patient reports no known family medical history. Social History Smoking Status: Former Smoker Marital Status: Occupational Status: employed Allergies Coded Allergies: Amoxicillin (Verified Allergy, Unknown, C DIFF, 10/16/16) Home Medications Scheduled Allopurinol (Allopurinol), 100 MG PO Q2D Aspirin (Aspirin Ec), 81 MG PO Q2D Cholecalciferol (Vitamin D3), 1 TAB PO QAM Coenzyme Q10 (Ubidecarenone) (Co Q 10), 1 CAP PO QAM Fish Oil ([place]-3), 1 CAP PO QAM Metoprolol Tartrate (Lopressor) (Lopressor), 25 MG PO Q2D Nitroglycerin (Nitroglycerin Lingual), 1 DOSE SL UD Sildenafil Citrate (Viagra), 50 MG PO PRN Simvastatin (Zocor), 40 MG PO Q2D Review of Systems ROS: well nourished well developed. Patient is still working as a traffic engineer for the [employer] and commuting back and forth from [place] to [facility] No double vision blurry vision No problems with speech or swallowing No palpitations, chest pain or pressure No Wheezing or breathing issues No abdominal pain nausea vomiting patient's had bright red blood per rectum but no changes in his appetite weight loss or typical s stool habits up until this week No burning urine urine frequency or changes in color No focal joint pain or muscle pain No skin rashes or oral lesions No unusual bruising or bleeding No focused back pain or numbness or loss of strength No changes in memory or confusion Physical Exam Vital Signs Date Time Temp Pulse Resp B/P (MAP) Pulse Ox O2 Delivery O2 Flow Rate FiO2 11/26/17 15:24 75 20 182/86 96 Room Air 11/26/17 14:56 75 20 175/87 97 Room Air 11/26/17 14:36 81 18 183/82 96 Room Air 11/26/17 13:23 60 20 175/79 98 Room Air 11/26/17 13:20 68 11/26/17 12:11 36.6 76 16 165/69 97 General Appearance: WD/WN, no apparent distress Eyes: normal inspection, sclerae normal Neck: supple, no JVD Respiratory/Chest: chest non-tender, lungs clear, no accessory muscle use Cardiovascular: regular rate, rhythm, no murmur Abdomen/GI: normal bowel sounds, non tender, soft Extremities/Musculoskelatal: normal inspection, no pedal edema Neurologic/Psych: alert, oriented x 3 Skin: normal color, warm/dry, no rash Diagnostics Laboratory Results Results Past 24 Hours Test 11/26/17 13:06 11/26/17 14:30 Range/Units White Blood Count 6.83 4.8-10.8 K/uL Red Blood Count 4.05 4.7-6.1 M/uL Hemoglobin 11.3 14.0-18.0 g/dL Hematocrit 33.8 42-52 % Mean Corpuscular Volume 83.5 80-100 fL Mean Corpuscular Hemoglobin 27.9 25-34 pg Mean Corpuscular Hemoglobin Concent 33.4 32-36 g/dl Platelet Count 220 130-400 K/uL Mean Platelet Volume 10.1 7.4-10.4 fL Neutrophils (%) (Auto) 56.1 % Lymphocytes (%) (Auto) 29.6 % Monocytes (%) (Auto) 11.3 % Eosinophils (%) (Auto) 2.0 % Basophils (%) (Auto) 0.9 % Neutrophils # (Auto) 3.83 1.4-6.5 K/uL Lymphocytes # (Auto) 2.02 1.2-3.4 K/uL Monocytes # (Auto) 0.77 0.11-0.59 K/uL Eosinophils # (Auto) 0.14 0-0.5 K/uL Basophils # (Auto) 0.06 0-0.2 K/uL RDW Standard Deviation 43.2 36.4-46.3 fL RDW Coefficient of Variation 14.1 11.5-14.5 % Immature Granulocyte % (Auto) 0.1 % Immature Granulocyte # (Auto) 0.01 0.00-0.02 K/uL Prothrombin Time 10.3 9.0-12.0 SECONDS Prothromb Time International Ratio 1.0 0.9-1.1 Activated Partial Thromboplast Time 25.7 21.0-31.0 SECONDS Partial Thromboplastin Ratio 1.0 Sodium Level 138 136-145 mmol/L Potassium Level 3.8 3.5-5.1 mmol/L Chloride Level 105 98-107 mmol/L Carbon Dioxide Level 26 21-32 mmol/L Anion Gap 7.0 3-11 mmol/L Blood Urea Nitrogen 13 7-18 mg/dl Creatinine 0.90 0.60-1.40 mg/dl Est Creatinine Clear Calc Drug Dose 93.4 ml/min Estimated GFR () 97.2 Estimated GFR (Non- 83.8 BUN/Creatinine Ratio 14.7 10-20 Random Glucose 95 70-99 mg/dl Lactic Acid Level 0.9 0.4-2.0 mmol/L Calcium Level 9.3 8.5-10.1 mg/dl Total Bilirubin 0.5 0.2-1 mg/dl Direct Bilirubin < 0.1 0-0.2 mg/dl Aspartate Amino Transf (AST/SGOT) 19 15-37 U/L Alanine Aminotransferase (ALT/SGPT) 22 12-78 U/L Alkaline Phosphatase 79 45-117 U/L Total Protein 7.2 6.4-8.2 gm/dl Albumin 3.8 3.4-5.0 gm/dl Lipase 108 73-393 U/L Urine Color YELLOW Urine Appearance CLEAR CLEAR Urine pH 6.5 4.5-7.5 Urine Specific [place] 1.009 1.000-1.030 Urine Protein NEG NEG Urine Glucose (UA) NEG NEG Urine Ketones NEG NEG Urine Occult Blood NEG NEG Urine Nitrite NEG NEG Urine Bilirubin NEG NEG Urine Urobilinogen NEG NEG Urine Leukocyte Esterase NEG NEG CXR normal Normal EKG Impression Assessment and Plan 72 M with bright red blood per rectum, painless, no other symptoms and recent Colonoscopy(2016) without major distress clear liquid diet hold aspirin protonic gtt if hgb drops will have GI evaluation anemia, has been stable but low since 2017 will send iron and B 12 levels Htn, will continue metrolol Prostatectomy, no issues with voiding at this time DVT prevention will be SCD given concern for bleeding Resuscitation Status VTE Prophylaxis Will order VTE Prophylaxis: No Reason for no VTE drug order: Contraindicated Reason no Mechanical VTE Order: Contraindicated (bleeding)
[2017-11-26 18:30] VITALS: BP 173/71; PULSE 73; TEMP 36.7; O2SAT 96
[2017-11-26] MEDS ORDERED: IV FLUIDS COMPLETED PRN (18:30)
[2017-11-26 19:14] LABS: HEMATOCRIT 33.9 % (42-52); HEMOGLOBIN 11.3 g/dL (14.0-18.0)
[2017-11-26] MEDS: METOPROLOL TARTRATE 25 MG TAB PO SCH (19:55)
[2017-11-26] MEDS: SODIUM CHLORIDE 0.9% 1000ML 1,000 ML IV SCH (19:55)
[2017-11-26] MEDS: PANTOprazole INJ 40 MG in SYRINGE 0 ML IV SCH (19:55)
[2017-11-26 20:08] VITALS: BP 173/71; PULSE 73; TEMP 36.7; O2SAT 96; Ht 188 cm; Wt 106.0 kg
[2017-11-26 22:16] VITALS: BP 172/75; PULSE 68
[2017-11-26 22:53] VITALS: BP 164/83; PULSE 64; TEMP 36.5; O2SAT 95
[2017-11-27] MEDS: SODIUM CHLORIDE 0.9% 1000ML 1,000 ML IV SCH (04:08)
[2017-11-27 06:57] VITALS: BP 176/79; PULSE 80; TEMP 36.7; O2SAT 93
[2017-11-27 08:21] VITALS: BP 169/77; PULSE 70
[2017-11-27] MEDS: METOPROLOL TARTRATE 25 MG TAB PO SCH (08:22)
[2017-11-27] MEDS: PANTOprazole INJ 40 MG in SYRINGE 0 ML IV SCH (08:22)
[2017-11-27 09:09] LABS: HEMATOCRIT 32.9 % (42-52); HEMOGLOBIN 10.9 g/dL (14.0-18.0); MEAN CELL VOLUME 84.4 fL (80-100); MEAN CORPUSCULAR HEMOGLOBIN 27.9 pg (25-34); MEAN CORPUSCULAR HGB CONC 33.1 g/dl (32-36); MEAN PLATELET VOLUME 10.1 fL (7.4-10.4); PLATELET COUNT 218 K/uL (130-400); RED CELL DISTRIBUTION WIDTH CV 14.5 % (11.5-14.5); RED CELL DISTRIBUTION WIDTH SD 44.4 fL (36.4-46.3); WHITE BLOOD COUNT 7.02 K/uL (4.8-10.8)
[2017-11-27 09:44] LABS: CALCIUM 8.7 mg/dl (8.5-10.1); CREATININE 1.05 mg/dl (0.60-1.40); POTASSIUM 3.5 mmol/L (3.5-5.1)
[2017-11-27] MEDS ORDERED: PANT40TA PO (10:26)
--- NOTE | 2017-11-27 10:27 | Discharge Instructions ---
Discharge Instructions Date of Service Nov 27, 2017. Admission Reason for Admission: Lower Gi Bleed Discharge Discharge Diagnosis / Problem: bright red blood per rectum, Discharge Goals Goal(s): Decrease discomfort, Improve function, Increase independence, Improve disease control, Improve nutritional status, Learn about illness, Diagnostic testing, Therapeutic intervention, Prevent Disease Progression, Specific goals Activity Recommendations Activity Limitations: resume your previous activity . Instructions / Follow-Up Instructions / Follow-Up you was having bright red blood per rectum prior to admission Possible internal hemorrhoid or some other lesions from GI tract, such as rectal , or colon I have requested grey roll worker to see you, however you do not want to wait to be seen you wanted leave from hospital before completing evaluation and observation on your own risk which include worsening GI bleeding, delayed diagnosis etc. We did set up an appointment for you to be seen by GI doctor Dr. Lopez on December 23, 2017, please keep this appointment If you want to be seen by GI sooner you needed to contact Dr. Freed You need to report to Dr. Freed going to the emergency room if have new bleedings , feel dizziness, chest pain, palpitation or if have any questions or concerns, I hope your aspirin aspirin, please discuss with Dr Freed before restarting - you need to follow up with your primary care physician in 1 week, I ordered lab on Thursday to check your hemoglobin level, you need to have it done - take medication as instructed, never overdose or any misuse, or take with alcohol, because misuse of medicine may cause organ damage or , call your primary care physician if have questions of medicaitons. - fall precaution - diet as instructed Current Hospital Diet Patient's current hospital diet: Full Liquid Diet Discharge Diet Recommended Diet: Regular Diet Pending Studies Studies pending at discharge: no Medical Emergencies . Who to Call and When: Medical Emergencies: If at any time you feel your situation is an emergency, please call 911 immediately. . Non-Emergent Contact Non-Emergency issues call your: Primary Care Provider, Foreign Legal Consultant . . "Provider Documentation" section prepared by Ronald Stern. .
[2017-11-27 11:07] VITALS: BP 169/77; PULSE 70; TEMP 36.7; O2SAT 93
--- NOTE | 2017-11-27 17:39 | Discharge Summary ---
Discharge Summary Date of Service Nov 27, 2017. Discharge Summary Admission Date: Nov 26, 2017 at 16:17 Discharge Date: Nov 27, 2017 Discharge Disposition: Home Principal Diagnosis: Lower GI bleeding Problems/Secondary Diagnoses: Procedures: No Consultations: Patient have not been seen by GI Medication Reconciliation New Medications: Pantoprazole (Protonix) 40 Mg Tab 40 MG PO DAILY, #14 Continued Medications: Allopurinol (Allopurinol) 100 Mg Tab 100 MG PO Q2D Cholecalciferol (Vitamin D3) 1,000 Unit Tab 1 TAB PO QAM, TAB Coenzyme Q10 (Ubidecarenone) (Co Q 10) 100 Mg Cap 1 CAP PO QAM Fish Oil ([place]-3) 1 Ea Cap 1 CAP PO QAM, 0 Refills Metoprolol Tartrate (Lopressor) (Lopressor) 25 Mg Tab 25 MG PO Q2D, TAB Nitroglycerin (Nitroglycerin Lingual) 0.4 Mg/[place] Spr 1 DOSE SL UD Sildenafil Citrate (Viagra) 50 Mg Tab 50 MG PO PRN, TAB Simvastatin (Zocor) 80 Mg Tab 40 MG PO Q2D, 0 Refills Discontinued Medications: Aspirin (Aspirin Ec) 81 Mg Tab 81 MG PO Q2D Discharge Exam Routine newspaper doing well, no any blood in the stool, denied dizziness, no any other complaints Review of Systems: Constitutional: No fever, No chills, No sweats, No weight loss, No weakness , No fatigue, No problem reported Eyes: No worsening of vision, No eye pain, No redness, No discharge, No diplopia, No problem reported ENT: No hearing loss, No unusual epistaxis, No nasal symptoms, No sore throat, No tinnitus, No dental problems, No trouble swallowing, No problem reported Respiratory: No cough, No sputum, No wheezing, No shortness of breath, No dyspnea on exertion, No dyspnea at rest, No hemoptysis, No problem reported Cardiovascular: No chest pain, No orthopnea, No PND, No edema, No claudication, No palpitations, No problem reported Abdomen: No pain, No nausea, No vomiting, No diarrhea, No constipation, No GI bleeding, No problem reported Psychiatric: No depression symptoms, No anhedonism, No anxiety, No insomnia , No substance abuse, No problem reported Endocrine: No fatigue, No excessive thirst, No excessive urination, No problem reported Hematologic / Lymphatic: No abnormal bleeding/bruising, No clotting problems , No swollen lymph nodes, No night sweats, No problem reported Integumentary: No rash, No itch, No new/changing skin lesions, No color change, No bleeding, No problem reported Physical Exam: General Appearance: WD/WN, no apparent distress Eyes: normal inspection, PERRL ENT: normal ENT inspection, hearing grossly normal, TMs normal Neck: supple, no adenopathy Respiratory/Chest: chest non-tender, lungs clear, normal breath sounds Cardiovascular: regular rate, rhythm, no edema, no gallop Abdomen / GI: normal bowel sounds, non tender, soft, no organomegaly Extremities: normal inspection, no calf tenderness, normal capillary refill Neurologic/Psychiatric: extractor filler II-XII nml as tested, no motor/sensory deficits , alert, normal mood/affect Skin: normal color, warm/dry Hospital Course 72 M was admitted with bright red blood per rectum, painless, no other symptoms and recent Colonoscopy(2015) without major distress Was given clear liquid diet, hold aspirin, protonic gtt, has follow-up his hemoglobin, she has been stable, 11.3 upon admission and this morning and the same level of 11.3, Possible iron deficiency anemia, vitamin B12 and folic acid within normal limits however iron level is normal and total iron binding capacity is high which high to indicate iron deficiency anemia, iron deficiency anemia may indicate patient has lesions in the digestive tract such as colon cancer I have requested thermal cutter hand to see , however pt do not want to wait to be seen , he wanted leave from hospital before completing evaluation and observation on his own risk which include worsening GI bleeding, delayed diagnosis of cancer etc. We did set up an appointment for you to be seen by GI doctor Dr. Lopez on December 23, 2017, I have asked patient to please keep this appointment , I told him if he want to be seen by GI sooner you needed to contact Dr. Freed need to report to Dr. Freed going to the emergency room if have new bleedings, feel dizziness, chest pain, palpitation or if have any questions or concerns, Htn, stable, continue metrolol History of prostatectomy, no issues with voiding at this time Indeterminate 19 mm right lobe hepatic hypodensity", I told patient follow up with Dr. Freed about this, Dr. Freed please to continue follow-up DVT prevention will be SCD given concern for bleeding Instructions / Follow-Up you was having bright red blood per rectum prior to admission Possible internal hemorrhoid or some other lesions from GI tract, such as rectal , or colon I have requested thermal cutter hand to see you, however you do not want to wait to be seen you wanted leave from hospital before completing evaluation and observation on your own risk which include worsening GI bleeding, delayed diagnosis etc. We did set up an appointment for you to be seen by GI doctor Dr. Lopez on December 23, 2017, please keep this appointment If you want to be seen by GI sooner you needed to contact Dr. Freed You need to report to Dr. Freed going to the emergency room if have new bleedings , feel dizziness, chest pain, palpitation or if have any questions or concerns, I hope your aspirin aspirin, please discuss with Dr Freed before restarting - you need to follow up with your primary care physician in 1 week, I ordered lab on Thursday to check your hemoglobin level, you need to have it done - take medication as instructed, never overdose or any misuse, or take with alcohol, because misuse of medicine may cause organ damage or , call your primary care physician if have questions of medicaitons. - fall precaution - diet as instructed Total Time Spent: Greater than 30 minutes This includes examination of the patient, discharge planning, medication reconciliation, and communication with other providers. Discharge Instructions Please refer to the electronic Patient Visit Report (Discharge Instructions) for additional information. Additional Copies To Kong Lopez M.D.; Clyde Freed M.D.
== END 2017-11-27 11:30 | disposition home or self-care (01) ==
LOC: C.EDB 11:57 → C.MS4W 16:17 → ENRESERV 17:13
PROVIDERS: ADMIT Internal Medicine; ATTEND Hospitalist
DX: K92.2 Gastrointestinal hemorrhage, unspecified (principal); I10 Essential (primary) hypertension; M17.11 Unilateral primary osteoarthritis, right knee; Z90.79 Acquired absence of other genital organ(s); Z87.891 Personal history of nicotine dependence; Z88.1 Allergy status to other antibiotic agents; Z79.82 Long term (current) use of aspirin; Z85.46 Personal history of malignant neoplasm of prostate